=== PATIENT | male | born 1960 | race Caucasian/White ===

== ENCOUNTER 2023-04-16 22:20 | Emergency (ER) | payer BC, SELFPAY ==
[2023-04-16 22:21] VITALS: BMI 27.9
[2023-04-16 22:24] VITALS: BP 110/74
[2023-04-16 22:52] LABS: % Basophils 1.1 % (0-2); % Eosinophils 2.9 % (0-6); % Immature Granulocytes 0.3 % (0-0.5); % Lymphocytes 36.1 % (20.5-51.1); % Monocytes 13.5 % (1.7-9.3); % Neutrophils 46.1 % (42.2-75.2); Absolute Basophils 0.1 10^3/uL (0-0.2); Absolute Eosinophils 0.2 10^3/uL (0-0.7); Absolute Lymphocytes 2.4 10^3/uL (1.2-3.4); Absolute Monocytes 0.9 10^3/uL (0.1-0.6); Hematocrit 42.2 % (39.0-52.0); Hemoglobin 15.3 g/dL (13.0-18.0); Mean Corp Hgb Conc. 36.3 g/dL (33.0-37.0); Mean Corpuscular Hgb 33.6 pg (27.0-31.0); Mean Corpuscular Volume 92.7 fL (80.0-94.0); Mean Platelet Volume 9.3 fL (7.4-10.4); Nucleated Red Blood Cells % 0 % (-); Platelet Count 198 10^3/uL (130-400); Red Blood Cell Count 4.55 10^6/uL (4.70-6.10); Red Cell Dist. Width 13.4 % (11.5-14.5); White Blood Cell Count 6.6 10^3/uL (4.8-10.8)
[2023-04-16 23:07] LABS: ALT (SGPT) 58 U/L (0-50); AST (SGOT) 83 U/L (17-59); Albumin 4.4 g/dl (3.5-5.0); Alkaline Phosphatase 80 U/L (38-126); Blood Urea Nitrogen 6 mg/dl (9-20); Calcium 8.6 mg/dl (8.4-10.2); Carbon Dioxide 19 mmol/L (22-30); Chloride 107 mmol/L (98-107); Estimated Creatinine Clearance 114 ml/min; Glucose 105 mg/dl (70-99); Sodium 138 mmol/L (135-145); Total Bilirubin 0.4 mg/dl (0.2-1.3); Total Protein 7.3 g/dl (6.3-8.2); eGFR > 60.00
[2023-04-16 23:16] LABS: Alcohol 381 mg/dl
[2023-04-16 23:19] LABS: Troponin I < 0.012 ng/ml
[2023-04-16 23:22] VITALS: BP 102/66
--- NOTE | 2023-04-16 23:41 | ED.GENMED ---
History of Present Illness
General
Chief Complaint: Fainting/Passed Out
Source: patient, spouse and ambulance crew
Exam Limitations: none
Time Seen by Provider: 04/16/23 23:28
Nursing documentation reviewed up to this point in time: agreed with
Travel History
Have you had any contact with someone who has COVID-19?: No
Do you have any symptoms of coronavirus? Fever > 100 degrees, chills, cough, shortness of breath, sore throat, loss of taste or smell, muscle aches, or headache?: No
History of Present Illness
History of Present Illness:
63-year-old male presents emergency ferment due to a near syncope event. He was intoxicated, and was assisted to the ground. He drank a lot of alcohol tonight. He drinks scotch and beer every day. He states he feels fine at this time. Per EMS,
his heart rate dropped and he was given 1 mg of atropine. He was given IV fluids and a blood sugar of 89 was checked by EMS. He takes a blood thinner, and smokes cigarettes. Neither patient or his know his medical history or what medications
he is on. All of his medical care is at [facility].
Past History
Past History
ED Past Medical History: Other (History of pneumonia, otherwise patient does not recall his medical problems)
Social History
Tobacco: Smoker
Alcohol: Chronic alcoholic
Drug: None
Personal:
Living: with family
Employment: Employed ([employer])
Review of Systems
Review of Systems
Allergies reviewed?: Yes
All Other Systems: Not applicable
Constitutional: Reports no symptoms
EENT: Reports no symptoms
Respiratory: Reports no symptoms
Cardiac: Reports syncope
ABD/GI: Reports no symptoms
: Reports no symptoms
Musculoskeletal: Reports no symptoms
Skin: Reports no symptoms
Neurological: Reports no symptoms
Endocrine: Reports no symptoms
Hematologic/Lymphatic: Reports no symptoms
Psychiatric: Reports no symptoms
Phy Exam
Physical Exam
Physical Exam:
Physical Exam
General: no apparent distress, not acutely ill, alcohol on breath
Neck: supple. no meningeal signs. normal posterior pharynx
Heart: s1/s2 regular rate and rhythm, no murmur. equal radial
pulses.
HEENT: Pupils equal round reactive to light, EOMI
Lungs: no acute respiratory distress. clear bilaterally
Abdomen: normal bowel sounds. not tender. no CVAT
Neuro: alert and oriented. no focal neurological deficits cranial nerves II through XII intact
Skin: no rash
Psychiatric: well kept. interactive and cooperative
Extremities: no edema. no calf tenderness. negative homans. good distal pulses
Course
Orders/Labs/Results
Orders:
Orders
04/16/23 22:22
Electrocardiogram (*1) Urgent
Reason for Study: Syncope
EKG- Treatment ONCE
04/16/23 22:[address] [CT Head W/o Iv Contrast] Urgent
Comment:
Reason For Exam: FALL
04/16/23 22:41
Alcohol Urgent
CMP [Comprehensive Metabolic Panel] Urgent
Complete Blood Count/With Diff Urgent
Troponin I Urgent
Abnormal Lab Results
04/16/23
22:41
RBC 4.55 L 10^6/uL
(4.70-6.10)
MCH 33.6 H pg
(27.0-31.0)
Absolute Monos (auto) 0.9 H 10^3/uL
(0.1-0.6)
Monocytes % 13.5 H %
(1.7-9.3)
Carbon Dioxide 19 L mmol/L
(22-30)
BUN 6 L mg/dl
(9-20)
Creatinine 0.6 L mg/dL
(0.7-1.3)
Glucose 105 H mg/dl
(70-99)
AST 83 H U/L
(17-59)
ALT 58 H U/L
(0-50)
04/16/23 22:41
04/16/23 22:41
Vital Signs
Initial and Last Documented VS:
Initial Vital Signs
Temp Pulse Resp BP Pulse Ox
97.8 F 82 18 110/74 96
04/16/23 22:24 04/16/23 22:24 04/16/23 22:24 04/16/23 22:24 04/16/23 22:24
Last Documented Vital Signs
Temp Pulse Resp BP Pulse Ox
97.8 F 64 22 98/66 96
04/16/23 22:24 04/17/23 01:50 04/17/23 01:50 04/17/23 01:50 04/17/23 01:50
MDM/Problems Addressed
Differential Diagnosis Includes:
Dysrhythmia, vasovagal, intracranial hemorrhage, CVA
MDM/Problems Addressed:
63-year-old male with alcohol intoxication, alcoholism, syncope versus near syncope episode likely vasovagal. Patient offered [facility] information, he declines at this time. Stable for discharge.
*Radiology
Radiology exam reviewed: radiology read reviewed (CT head no acute finding)
*Pulse Oximetry
Patient hypoxic: no
*Critical Care Note
Total Time (30-74mins, 75-104mins- exclusive of procedures): Not Applicable
ED Attending Note
-
Portions of this chart may have been created with voice recognition software.� Occasional wrong word or��sound alike� substitutions may have occurred due to the inherent limitations of voice recognition software.
Discharge Plan
Departure
Patient Disposition: Home (Routine Discharge)
Date of Disposition: 04/17/23
Time of Disposition: 01:52
Patient with high blood pressure during this ER visit?: No
Condition: Good
Discharge Problem:
Alcohol intoxication, Near syncope
Instructions: Syncope (Fainting) (DC), Alcohol Use Disorder (DC)
Prescriptions:
No Action
Unobtainable
0
Referrals:
Vincent Doherty MD [Family Provider] - Call in 1-3 days for appt
Interventions
Interventions:
*Risk Screen - Suicide Last Done: 04/16/23 23:05
*General Assessment Last Done: 04/16/23 22:24
*Neglect/Abuse Screening Last Done: 04/16/23 22:24
ED- Fall Risk Assessment Last Done: 04/16/23 23:05
ED- Cardiac Assessment Last Done: 04/16/23 22:48
ED- Neurological Assessment Last Done: 04/16/23 22:48
ED-Psychological Assessment Last Done: 04/16/23 23:25
Discharge Date and Time
Discharge Date/Time: 04/17/23 02:12
[2023-04-17 00:16] VITALS: BP 116/68
[2023-04-17 01:00] VITALS: BP 95/64
[2023-04-17 01:50] VITALS: BP 98/66
== END 2023-04-17 02:12 | disposition home or self-care (01) ==
LOC: EMR 22:20
PROVIDERS: Emergency Medicine; EMERGENCY PHYSICIAN Emergency Medicine; FAMILY PHYSICIAN Internal Medicine
DX: R55 Syncope and collapse (principal); F10.229 Alcohol dependence with intoxication, unspecified; F17.210 Nicotine dependence, cigarettes, uncomplicated; Z87.01 Personal history of pneumonia (recurrent)
CPT/HCPCS: 99284; 70450; 80053; 82077; 84484; 85025; 93005